=== PATIENT | female | born 1945 | race African-American/Black ===

== ENCOUNTER → 2017-03-20 | Outpatient (CLI) | payer MEDICARE ==
[2014-11-29 16:40] VITALS: BP 138/76
[~2017-03-20] MED LIST: AZEL137S3 NS; DEXL60CA2 PO; FLUT9.9S NS; LOSA100T6 PO; MOME13HF IH; PROAIR HFA8.5 GM IH; VERA240C2 PO
--- NOTE | 2017-03-20 12:09 | KCIC ---
DATE: 03/20/2017 EXAM: MAMMO JESUSITA SCREENING BILATERAL HISTORY: Routine screening COMPARISON: 12/07/2015 The breast parenchyma shows scattered fibroglandular densities. Breast parenchyma level B. FINDINGS: 2-D and 3-D tomosynthesis imaging was performed in CC and MLO projections. There are numerous small smooth nodules in both breasts. No new or enlarging breast densities are seen. Benign type calcifications are present. No suspicious microcalcifications have developed. IMPRESSION: Stable mammograms without evidence of malignancy. BI-RADS CATEGORY: 2 BENIGN FINDING(S) RECOMMENDED FOLLOW-UP: 12M 12 MONTH FOLLOW-UP PQRS compliance statement: Patient information was entered into a reminder system with a target due date for the next mammogram. Mammography is a sensitive method for finding small breast cancers, but it does not detect them all and is not a substitute for careful clinical examination. A negative mammogram does not negate a clinically suspicious finding and should not result in delay in biopsying a clinically suspicious abnormality. "Our facility is accredited by the [employer] Mammography Program."
== END | disposition home or self-care (01) ==
LOC: KCIC MAMMO 09:40
PROVIDERS: ATTEND Family Medicine
DX: Z12.31 Encounter for screening mammogram for malignant neoplasm of breast (principal)
CPT/HCPCS: 77063; G0202; 77067

== ENCOUNTER → 2017-03-25 | Outpatient (CLI) | payer MEDICARE ==
[2014-11-29 16:40] VITALS: BP 138/76
--- NOTE | 2017-03-25 10:43 | KCIC ---
CT MAXILLOFACIAL WO CONTRAST dated 03/25/2017 9:00 AM Indication: Cough, chronic sinusitis patient has been on antibiotics.. Comparison: No comparison is available. Technique: Contiguous axial imaging of the maxillofacial bones obtained with thin cut coronal and sagittal reconstruction. One or more of the following individualized dose reduction techniques were utilized for this examination: 1. Automated exposure control 2. Adjustment of the mA and/or kV according to patient size 3. Use of iterative reconstruction technique Findings: Mild mucosal thickening of the bilateral maxillary sinus. The sphenoid, ethmoid and frontal sinuses are clear. Ostiomeatal units and infundibula are patent. Mastoid air cells and middle ears are clear. No bony destructive process or periostitis. Nasal septum is near midline. Mild bilateral nasal turbinates hypertrophy. Visualized soft tissue structures are unremarkable. Limited imaged portions of the brain are unremarkable. Asymmetric increased density at the left lens as compared to the right side could be related to prior lens surgery and/or cataract formation. IMPRESSION: 1. Minimal maxillary sinus mucosal thickening. Ostiomeatal units and infundibula are patent. Electronically signed by: Steven Reardon MD (03/25/2017 10:40 AM) [facility]-[id number]
== END | disposition home or self-care (01) ==
LOC: KCIC CT 08:48
PROVIDERS: ATTEND Allergy & Immunology
DX: J32.9 Chronic sinusitis, unspecified (principal)
CPT/HCPCS: 70486

== ENCOUNTER → 2017-07-09 | Outpatient (CLI) | payer MEDICARE | END | disposition home or self-care (01) | LOC: KCIC US 07:49 | DX: N83.202 Unspecified ovarian cyst, left side (principal) | CPT/HCPCS: 76830; 76856 ==

== ENCOUNTER → 2017-07-17 | Outpatient (CLI) | payer MEDICARE | END | disposition home or self-care (01) | LOC: KCIC MRI 08:24 | DX: S83.242A Other tear of medial meniscus, current injury, left knee, initial encounter (principal); M17.12 Unilateral primary osteoarthritis, left knee; M22.42 Chondromalacia patellae, left knee; M25.462 Effusion, left knee; X58.XXXA Exposure to other specified factors, initial encounter; Y93.89 Activity, other specified; Y92.89 Other specified places as the place of occurrence of the external cause; Y99.8 Other external cause status | CPT/HCPCS: 73721 ==

== ENCOUNTER 2018-01-07 11:12 | Emergency (ER) | payer MEDICARE ==
[2018-01-07] MEDS: DEXAMETHASONE SOD PHOS 20 MG/5 ML VIAL. IM (11:56)
[2018-01-07] MEDS: KETOROLAC 60 MG/2 ML INJ. IM (11:56)
== END 2018-01-07 12:16 | disposition home or self-care (01) ==
LOC: ER 11:12
DX: M75.52 Bursitis of left shoulder (principal); M62.830 Muscle spasm of back; J45.909 Unspecified asthma, uncomplicated; K21.9 Gastro-esophageal reflux disease without esophagitis; I10 Essential (primary) hypertension; Z90.49 Acquired absence of other specified parts of digestive tract; Z90.710 Acquired absence of both cervix and uterus; Z88.2 Allergy status to sulfonamides
CPT/HCPCS: 96372; 99284; J1100; J1885

== ENCOUNTER → 2018-05-28 | Outpatient (CLI) | payer MEDICARE ==
[2018-01-07 11:17] VITALS: BP 157/81
[~2018-05-28] MED LIST changes: +DICL50TA4 PO; +LOSA100T14 PO; -LOSA100T6 PO; +METH4TAB2 PO; +TRAM50TA PO
--- NOTE | 2018-05-28 12:43 | KCIC ---
MR of the left shoulder Indication: Left shoulder pain, recent injection in physical therapy. No known injury. Pain when raising arm for about 3 weeks.. Comparison: None are available. Technique: Standard multiplanar sequences are obtained. Findings: Artifact: Mild motion degradation but exam is diagnostic. Acromioclavicular joint:Intact. Rotator cuff: * Supraspinatus-infraspinatus tendon: There is a small full-thickness tear of the supraspinatus tendon at the anterior footprint. Measures about 1 cm AP diameter with less than 1 cm retraction. There is tendinosis and partial tearing of the more posterior rotator cuff. * Subscapularis tendon: Intact * Muscle bulk: Mild atrophy * Subacromial subdeltoid bursa: Small effusion. Fluid tracks medially superficial to the supraspinatus muscle. Fluid: No significant glenohumeral effusion. Glenohumeral cartilage: Mild degenerative change Labrum: No evidence of labral detachment. Biceps tendon: Intact Bones: No lesion or acute fracture. Soft tissue: No acute findings.. Impression: 1. Small full-thickness tear of the anterior supraspinatus tendon, about 1 cm diameter. 2. Small subdeltoid bursal effusion or bursitis. Electronically signed by: Steven Donaldson MD (05/28/2018 12:39 PM) [facility]-[id number]
== END | disposition home or self-care (01) ==
LOC: KCIC MRI 10:53
PROVIDERS: ATTEND Physician Assistant Surgical
DX: M19.012 Primary osteoarthritis, left shoulder (principal); M75.102 Unspecified rotator cuff tear or rupture of left shoulder, not specified as traumatic; M25.412 Effusion, left shoulder
CPT/HCPCS: 73221

== ENCOUNTER → 2019-07-02 | Outpatient (CLI) | payer MEDICARE ==
[2018-01-07 11:17] VITALS: BP 157/81
[~2019-07-02] MED LIST changes: +ALBU2.5V8 IH; -PROAIR HFA8.5 GM IH
--- NOTE | 2019-07-02 14:23 | KCIC ---
UPPER EXT JOINT WO CONT LEFT dated 07/02/2019 2:45 PM Indication: Left shoulder pain limited range of motion history of prior surgery and 2018. Comparison: 05/28/2018 Technique: Routine multiplanar multisequence imaging performed. . Findings: There has been interval subacromial decompression and rotator cuff repair. Intermediate T2 signal throughout the repaired cuff with no evidence of recurrent full-thickness tear or cuff retraction. There is articular and bursal surface fraying of the repaired cuff, particularly at the supraspinatus footplate. Partial thickness tearing extends upwards of 50% near the footplate attachment. Subscapularis is intact. There is edema within the marrow of the humeral head near the level of the rotator cuff repair suture anchors. There is also a focal wedge-shaped area of edema within the posterior medial humeral head extending to the articular surface, new from prior study. Mild degenerative change at the glenohumeral joint. There is blunted morphology of the posterior labrum. Thinning and surface irregularity of the articular cartilage throughout with near full-thickness cartilage loss of the central glenoid and medial humeral head. There is mild increased signal within the substance of the long head biceps tendon proximally. Ill-definition of the biceps attachment at the biceps anchor. The extra-articular biceps tendon courses within the bicipital groove. Mild hypertrophic change of the AC joint. Tiny subacromial/subdeltoid bursal effusion. Small glenohumeral joint effusion with small loose bodies or debris at the inferior joint space. Suprascapular and spinoglenoid notches are clear. No significant muscle edema. There is [id number] atrophy of the supraspinatus muscle. IMPRESSION: 1. There is been interval subacromial decompression and rotator cuff repair. Mild to moderate articular and bursal surface partial tearing of the supraspinatus footplate. No recurrent full-thickness tear or cuff retraction. 2. 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 Small focus of subchondral edema at the posterior medial humeral head could be related to overlying full-thickness cartilage loss or bone contusion. Correlate clinically. 3. Blunted morphology of the posterior labrum consistent with degenerative labral tearing. 4. Ill-definition of the long head biceps tendon proximally, focal tendinosis versus partial tear. 5. Small glenohumeral joint effusion. Electronically signed by: Steven Reardon MD (07/02/2019 2:20 PM) [facility]-[id number]
== END | disposition home or self-care (01) ==
LOC: KCIC MRI 12:51
PROVIDERS: ATTEND Orthopaedic Surgery
DX: M75.112 Incomplete rotator cuff tear or rupture of left shoulder, not specified as traumatic (principal); M19.012 Primary osteoarthritis, left shoulder; M25.412 Effusion, left shoulder; M94.212 Chondromalacia, left shoulder; Z98.890 Other specified postprocedural states
CPT/HCPCS: 73221

== ENCOUNTER → 2020-01-04 | Outpatient (CLI) | payer MEDICARE ==
[2018-01-07 11:17] VITALS: BP 157/81
[~2020-01-04] MED LIST changes: +GADOTERATE 7.5 MMOL/15ML VIAL. IVP ONE
--- NOTE | 2020-01-04 12:07 | KCIC ---
EXAM: Lumbar spine MRI without and with contrast. HISTORY: Right-sided sciatica. TECHNIQUE: Multiplanar, multisequence magnetic resonance imaging of the lumbar spine was performed prior to and following the administration of intravenous contrast. COMPARISON: 05/20/2011. FINDINGS: There is mild lumbar scoliosis. There is grade 1 anterolisthesis of L4 and L5, measuring 5 mm. There is degenerative endplate remodeling and disc space narrowing at L4-L5. There is disc desiccation at the lower lumbar levels. The conus terminates at L1. There is postoperative scarring and susceptibility effect within the posterior back soft tissues. There are incidental simple renal cysts. No suspicious enhancing lesion is seen. At L1-L2, there is no stenosis. At L2-L3, there is no stenosis. At L3-L4, there is a disc bulge and endplate remodeling. There is mild bilateral facet arthropathy. There is stenosis. At L4-L5, there is a left foraminal disc protrusion with slight superior extrusion superimposed on a diffuse disc bulge and endplate remodeling. There is also a left there are annular tears. There is moderate bilateral facet arthropathy. There are hemilaminectomy changes. There is grade 1 anterolisthesis. There is moderate bilateral foraminal stenosis with abutment of the exiting left greater than right L4 nerve roots. There is mild central canal stenosis. At L5-S1, there is a shallow posterior central disc protrusion and annular tear superimposed on a disc bulge and endplate remodeling. There is mild bilateral facet arthropathy. There is moderate effacement of the thecal sac due to prominent epidural fat. IMPRESSION: 1. Multilevel degenerative change involving the lumbar spine, described in detail above. This is associated with moderate bilateral foraminal and mild central canal stenosis at L4-L5. This is increased compared to the prior study. There are interval hemilaminectomy changes at this level. 2. Mild lumbar scoliosis and grade 1 anterolisthesis of L4 and L5. This also progressed compared to the prior study. Electronically signed by: Jennie Cade MD (01/04/2020 12:05 PM) [id number]
== END ==
LOC: KCIC MRI 09:46
PROVIDERS: ATTEND Orthopaedic Surgery
DX: M47.816 Spondylosis without myelopathy or radiculopathy, lumbar region (principal); M41.86 Other forms of scoliosis, lumbar region; M48.061 Spinal stenosis, lumbar region without neurogenic claudication
CPT/HCPCS: 72158; 82565; A9575

== ENCOUNTER → 2020-02-28 | Outpatient (CLI) | payer MEDICARE ==
[2018-01-07 11:17] VITALS: BP 157/81
[~2020-02-28] MED LIST changes: +AMIT50TA PO; +CETI10TA16 PO; +CHOL500050 PO; +CIME200T6 PO; +DICL100G54 TP; +DUPI200S SQ; +GABA600T7 PO; -GADOTERATE 7.5 MMOL/15ML VIAL. IVP ONE; +MONT10TA49 PO; +allergy shot
[2020-02-28 09:25] LABS: BASO % 1 % (0-3); EOS # 0.2 x10^3/uL (0.0-0.7); EOS % 5 % (0-3); HEMATOCRIT 38.9 % (36.0-47.0); HEMOGLOBIN 12.8 g/dL (12.0-15.5); LYMPH # 2.1 x10^3/uL (1.0-4.8); LYMPH % 42 % (24-48); MEAN CORPUSCULAR HEMOGLOBIN 27 pg (25-35); MEAN CORPUSCULAR HGB CONC 33 g/dL (31-37); MEAN CORPUSCULAR VOLUME 82 fL (79-100); MONO # 0.3 x10^3/uL (0.0-1.1); MONO % 7 % (0-9); NEUT # 2.3 x10^3/uL (1.8-7.7); NEUT % 46 % (31-73); PLATELET COUNT 349 x10^3/uL (140-400); RED BLOOD COUNT 4.74 x10^6/uL (3.50-5.40); RED CELL DISTRIBUTION WIDTH 14.7 % (11.5-14.5); WHITE BLOOD COUNT 4.9 x10^3/uL (4.0-11.0)
[2020-02-28 09:28] LABS: PROTHROMBIN TIME PATIENT 13.8 SEC (11.7-14.0)
[2020-02-28 09:35] LABS: ALBUMIN 3.2 g/dL (3.4-5.0); C-REACTIVE PROTEIN 16.6 mg/L (0-3.3); CALCIUM 8.8 mg/dL (8.5-10.1); GFR 65.4; POTASSIUM 3.6 mmol/L (3.5-5.1)
--- NOTE | 2020-02-28 12:50 | EKG ---
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
--- NOTE | 2020-02-28 16:40 | RAD ---
AP and Lateral Views of the Chest 02/28/2020 8:54 AM Indication: Reason: prehab class hx hypertension-preop eval / Spl. Instructions: / History: Comparison: None Findings: There is no focal consolidation or infiltrate identified. The cardiomediastinal silhouette is within normal limits. There is no evidence of pneumothorax or pleural effusion. No acute osseous abnormalities are identified. Impression: No evidence of acute cardiopulmonary process. Electronically signed by: Houston Marquez MD (02/28/2020 4:38 PM) [id number]
[2020-02-29 02:08] LABS: HEMOGLOBIN A1C 7.2 % (4.8-5.6)
== END | disposition home or self-care (01) ==
LOC: SURGPAT 13:06
PROVIDERS: ATTEND Orthopaedic Surgery
DX: Z01.818 Encounter for other preprocedural examination (principal); M17.12 Unilateral primary osteoarthritis, left knee; I10 Essential (primary) hypertension
CPT/HCPCS: 36415; 71046; 80048; 82040; 82306; 83036; 85025; 85610; 85730; 86140; 87641; 93005

== ENCOUNTER → 2020-03-17 | Outpatient (CLI) | payer MEDICARE ==
[2018-01-07 11:17] VITALS: BP 157/81
== END | disposition home or self-care (01) ==
LOC: LAB 13:39
PROVIDERS: ATTEND Orthopaedic Surgery
DX: Z20.828 Contact with and (suspected) exposure to other viral communicable diseases (principal)
CPT/HCPCS: U0003-CS

== ENCOUNTER → 2020-04-17 | Outpatient (CLI) | payer MEDICARE ==
[2020-03-23 11:17] VITALS: BP 133/75
--- NOTE | 2020-04-17 16:06 | KCIC ---
MRI ABDOMEN W/O CONTRAST: MRCP Clinical Indication: Reason: PANCREATITIS / Spl. Instructions: / History: Recent ilius and pancreatitis while hospitalized for a TKA. Comparison: CT abdomen and pelvis without contrast, March 23, 2020, [facility]. Technique: Multiplanar multiple pulse sequence imaging of the abdomen was performed, including T2 thin slab images through the biliary tree, without contrast. 3-D volume rendering images constructed to better evaluate the biliary tree anatomy. Findings: Common hepatic duct, common bile duct and visualized portions of the pancreatic duct are patent, without intraluminal filling defect or acute truncation. The extrahepatic duct measures 6 mm, normal. The pancreatic duct is normal caliber. There is a small cyst in segment 2 of the liver. There is mild fatty infiltration of the liver. The spleen, adrenal glands, and abdominal aorta caliber are normal. Cholecystectomy. No hydronephrosis. Small right renal cyst does not require follow-up. Peripancreatic edema is improved from prior study. The pancreas is homogeneous. Atelectasis in the lower lobes noted on the prior study has resolved. IMPRESSION: 1. There is no choledocholithiasis. 2. Mild fatty infiltration of the liver. Electronically signed by: Tyrell Davenport MD (04/17/2020 4:03 PM) [id number]
== END ==
LOC: KCIC MRI 08:24
PROVIDERS: ATTEND Internal Medicine Gastroenterology
DX: K76.0 Fatty (change of) liver, not elsewhere classified (principal); N28.1 Cyst of kidney, acquired; K85.90 Acute pancreatitis without necrosis or infection, unspecified; Z90.49 Acquired absence of other specified parts of digestive tract
CPT/HCPCS: 74181

== ENCOUNTER → 2020-08-24 | Outpatient (CLI) | payer MEDICARE ==
[2020-03-23 11:17] VITALS: BP 133/75
--- NOTE | 2020-08-24 16:19 | KCIC ---
Bilateral digital screening mammograms with 3-D tomosynthesis: Reason for examination: Routine screening. Comparison is made to previous studies dated between 03/20/2017 and 11/09/2014. Bilateral mammograms in CC and oblique projections were obtained with 2-D imaging and 3-D tomosynthes is imaging on a Siemens Inspiration unit and reviewed on the workstation. Interpretation was made pia h the benefit of CAD. The skin and nipples show no abnormalities. No abnormal axillary lymph nodes are seen. The breast par enchyma shows scattered fatty and fibroglandular density. (Breast density: Category B.) There continu e to be small nodular densities bilaterally which have benign appearances. There continue to be scatt ered and clustered benign-appearing calcifications again seen bilaterally which are stable. There are no new dominant masses, suspicious calcifications or architectural distortion. Impression: No evidence of malignancy. Recommend routine screening. BI-RAD Category 2: Benign. "Our facility is accredited by the [employer] Mammography Program." This patient's information has been entered into a reminder system for the patient to be notified wit h the results of her examination and a target date for the next mammogram. Electronically signed by: Eliana Toney MD (08/24/2020 4:16 PM) [id number]
== END ==
LOC: KCIC MAMMO 14:04
PROVIDERS: ATTEND Surgery
DX: Z12.31 Encounter for screening mammogram for malignant neoplasm of breast (principal)
CPT/HCPCS: 77063; 77067

== ENCOUNTER 2021-01-13 12:44 | Emergency (ER) | payer MEDICARE ==
[~2021-01-13] VITALS: Ht 149.9 cm; Wt 72.7 kg
--- NOTE | 2021-01-13 14:06 | RAD ---
Right RIBS with PA chest. Right hip 2 views. HISTORY: Right-sided rib pain after a fall 2 days ago, right hip pain Right RIBS with PA chest AP view was taken of the chest. There is no pneumothorax or pleural effusion. Lungs are clear. Heart is normal in size. AP and oblique views were taken of the right ribs. An acute rib fracture is not identified. There is no osseous abnormality. Right hip 2 views AP view was taken of the pelvis to include the right hip, lateral view was taken of the right hip. Th ere is no pelvic fracture. Pubic rami appear intact. Left hip appears unremarkable on the AP pelvis. Right hip was normal in appearance without a fracture or osseous abnormality on the AP pelvis and lat eral hip. IMPRESSION: 1. No pelvic or right hip fracture noted. 2. No acute chest disease. 3. No right rib fracture noted. Electronically signed by: Dave Silva MD (01/13/2021 2:04 PM) [id number]
--- NOTE | 2021-01-13 14:17 | PHYS DOC ---
Past Medical History Past Medical History: Asthma, GERD, Hypertension Past Surgical History: Cholecystectomy, Hysterectomy Additional Past Surgical Histo: R side shoulder surgery, back surgery, L knee torn ligament surgey Smoking Status: Never Smoker Alcohol Use: None Drug Use: None General Adult EDM: Chief Complaint: MECHANICAL FALL HPI: HPI: Patient is a 75 year old female who presented to ER for evaluation of right- sided rib pain, right hip pain after she fell 3 days ago. Patient states she was walking inside her, tripped and fell down. Patient did hit her head on the ground but no loss of consciousness. Patient denies taking any blood thinner. Patient came in today because the pain in her right hip and her right side of the chest. Patient has been able to walk only with pain. Patient denies any pain on her shoulder or upper extremity. She denies any trouble breathing. Review of Systems: Review of Systems: Constitutional: Denies fever or chills. [] Eyes: Denies change in visual acuity. [] HENT: Denies nasal congestion or sore throat. [] Respiratory: Denies cough or shortness of breath. [] Cardiovascular: Positive for right-sided chest pain, no edema GI: Denies abdominal pain, nausea, vomiting, bloody stools or diarrhea. [] : Denies dysuria. [] Musculoskeletal: Denies back pain, positive for right hip pain Integument: Denies rash. [] Neurologic: Denies headache, focal weakness or sensory changes. [] Endocrine: Denies polyuria or polydipsia. [] Lymphatic: Denies swollen glands. [] Psychiatric: Denies depression or anxiety. [] Heart Score: C/O Chest Pain: N/A Risk Factors: Risk Factors: DM, Current or recent (<one month) smoker, HTN, HLP, family history of CAD, obesity. Risk Scores: Score 0 - 3: 2.5% MACE over next 6 weeks - Discharge Home Score 4 - 6: 20.3% MACE over next 6 weeks - Admit for Clinical Observation Score 7 - 10: 72.7% MACE over next 6 weeks - Early Invasive Strategies Allergies: Allergies: Allergies Coded Allergies Type Severity Reaction Last Updated Verified Sulfa (Sulfonamide Antibiotics) Allergy Intermediate 03/21/20 Yes Physical Exam: PE: Constitutional: Well developed, well nourished, no acute distress, non-toxic appearance. [] HENT: Normocephalic, atraumatic, bilateral external ears normal, oropharynx moist, no oral exudates, nose normal. [] Eyes: PERRLA, EOMI, conjunctiva normal, no discharge. [] Neck: Normal range of motion, no tenderness, supple, no stridor. [] Cardiovascular:Heart rate regular rhythm, no murmur [] Lungs & Thorax: Bilateral breath sounds clear to auscultation, right-sided chest tender to palpation, no contusion noted. Abdomen: Bowel sounds normal, soft, no tenderness, no masses, no pulsatile masses. [] Skin: Warm, dry, no erythema, no rash. [] Back: No tenderness, no CVA tenderness. [] Extremities: No tenderness, no cyanosis, no clubbing, ROM intact, no edema. Right hip is tender to palpation, no contusion noted, no deformity noted. Neurologic: Alert and oriented X 3, normal motor function, normal sensory function, no focal deficits noted. [] Psychologic: Affect normal, judgement normal, mood normal. [] Current Patient Data: Vital Signs: Vital Signs Date Time Temp Pulse Resp B/P (MAP) Pulse Ox O2 Delivery O2 Flow Rate FiO2 01/13/21 13:10 98.6 95 13 175/88 (97) 95 Room Air 98.6 EKG: EKG: [] Radiology/Procedures: Radiology/Procedures: [][facility] [address] [place] [address] IMAGING REPORT Signed PATIENT: JUDGE Sandro SANCHEZ ACCOUNT: [id number] : 1945 LOCATION: ER AGE: 75 SEX: F EXAM STATUS: PRE ER ORD. PHYSICIAN: GAETANO MILLER DO REASON: fell 2 days ago, right hip pain PROCEDURE: HIP RIGHT 1 VIEW WITH PELVIS Right RIBS with PA chest. Right hip 2 views. HISTORY: Right-sided rib pain after a fall 2 days ago, right hip pain Right RIBS with PA chest AP view was taken of the chest. There is no pneumothorax or pleural effusion. Lungs are clear. Heart is normal in size. AP and oblique views were taken of the right ribs. An acute rib fracture is not identified. There is no osseous abnormality. Right hip 2 views AP view was taken of the pelvis to include the right hip, lateral view was taken of the right hip. There is no pelvic fracture. Pubic rami appear intact. Left hip appears unremarkable on the AP pelvis. Right hip was normal in appearance without a fracture or osseous abnormality on the AP pelvis and lateral hip. IMPRESSION: 1. No pelvic or right hip fracture noted. 2. No acute chest disease. 3. No right rib fracture noted. Electronically signed by: Dave Silva MD (01/13/2021 2:04 PM) [id number] DICTATED and SIGNED BY: DAVE SILVA MD DATE: 01/13/21 [id number] 0 Course & Med Decision Making: Course & Med Decision Making Pertinent Labs and Imaging studies reviewed. (See chart for details) Patient presented to ER due to pain on her right hip and her right chest after a fall 3 days ago. X-ray did not show any acute problem, patient was able to walk without a problem. Dragon Disclaimer: Dragon Disclaimer: This electronic medical record was generated, in whole or in part, using a voice recognition dictation system. Departure Departure Impression: Primary Impression: Contusion of chest wall Additional Impression: Contusion of right hip Disposition: 01 HOME / SELF CARE / HOMELESS Condition: STABLE Referrals: CYN SCHMITT MD (PCP) Follow up with your doctor as needed Patient Instructions: Chest Wall Pain, Hip Pointer (Iliac Crest Contusion)- [facility] Additional Instructions: Thank you for visiting our Emergency Department. We appreciate you trusting us with your care. If any additional problems come up don't hesitate to return to visit us. Please follow up with your primary care provider so they can plan additional care if needed and know about the problem that you had. If symptoms worsen come back to the Emergency Department. Any concerning symptoms that start such as chest pain, shortness of air, weakness or numbness on one side of the body, running high fevers or any other concerning symptoms return to the ER. GAETANO MILLER DO Jan 13, 2021 14:17
[2021-01-13 14:39] VITALS: BP 149/82
== END 2021-01-13 14:49 | disposition home or self-care (01) ==
LOC: ER 12:44
DX: S20.211A Contusion of right front wall of thorax, initial encounter (principal); S70.01XA Contusion of right hip, initial encounter; K21.9 Gastro-esophageal reflux disease without esophagitis; J45.909 Unspecified asthma, uncomplicated; I10 Essential (primary) hypertension; Z88.2 Allergy status to sulfonamides; W01.0XXA Fall on same level from slipping, tripping and stumbling without subsequent striking against object, initial encounter; Y93.01 Activity, walking, marching and hiking; Y92.89 Other specified places as the place of occurrence of the external cause; Y99.8 Other external cause status
CPT/HCPCS: 71101; 73501; 99284

== ENCOUNTER 2021-08-03 11:45 | Day surgery (SDC) | payer MEDICARE ==
[~2021-08-03] VITALS: Ht 151.1 cm; Wt 72.7 kg
[~2021-08-03 11:45] MED LIST changes: +CLINDAMYCIN 900MG PREMIX 50 ML IV PRN; +HYDROmorphone 2 MG/ML INJ. IVP PRN; +IV RINGERS,LACTATED 1000ML 1,000 ML IV SCH; +MORPHINE SULFATE 2 MG/ML INJ. IVP PRN; +PROCHLORPERAZINE 10 MG/2 ML VIAL. IVP PRN; +fentaNYL PF VIAL 100 MCG/2 ML VIAL IVP PRN
[2021-08-03] MEDS ORDERED: INSULIN LISPRO 100 UNIT/ML 3ML VIAL for OP,RR ONLY. SQ PRN (12:30)
[2021-08-03] MEDS ORDERED: TRAM50TA PO (14:27)
--- NOTE | 2021-08-03 14:29 | DISCH ---
DISCHARGE INSTRUCTIONS Condition on Discharge Condition on Discharge: Stable Activity After Discharge Activity Instructions for Disc: Resume previous activity, Avoid exertion Driving Instructions after Dis: Do not drive today Wound Incision Care Wound/Incision Care: Ice to area for comfort, Keep wound elevated, Change dressing Other wound/incision instructi: May change dressing to a large Band-Aid postoperative day #3 Follow-Up Follow up with: Dr. Carbajal in 10 to 14 days KAYLEIGH CARBAJAL Jr. DO Aug 03, 2021 14:29
[2021-08-03] MEDS ORDERED: BUPIVACAINE MPF 0.5% 30 ML VIAL. ONE (14:33)
[2021-08-03] MEDS ORDERED: methylPREDNISolone ACETATE 40 MG/ML VIAL. ONE (14:33)
[2021-08-03] MEDS ORDERED: PROPOFOL 10 MG/ML (20ML) VIAL. IV ONE (14:35)
[2021-08-03] MEDS ORDERED: fentaNYL PF VIAL 100 MCG/2 ML VIAL ONE (14:51)
--- NOTE | 2021-08-03 15:08 | PDOC4 ---
OPERATIVE NOTE Date: Date: Aug 03, 2021 Pre-Op Diagnosis: Carpal tunnel syndrome right CMC arthrosis right Post-Op Diagnosis: Same Procedure Performed: Carpal tunnel release right injection CMC joint right Surgeon: Feliberto Anesthesia Type: General Blood Loss: 5 cc Specimans Obtained: None Findings: See dictation Complications: None KAYLEIGH CARBAJAL Jr. DO Aug 03, 2021 15:08
[2021-08-03] MEDS ORDERED: traMADol 50 MG TABLET PO ONE (15:15)
--- NOTE | 2021-08-03 15:37 | OP ---
DATE OF SURGERY: 08/03/2021 PREOPERATIVE DIAGNOSES: Carpal tunnel syndrome, right; carpometacarpal arthrosis, right. POSTOPERATIVE DIAGNOSES: Carpal tunnel syndrome, right; carpometacarpal arthrosis, right. PROCEDURE: Right carpal tunnel release followed by injection CMC joint, right thumb. SURGEON: Janak Dao Jr, DO. SEARCH MARKETING ANALYST: Severino Goldman. ANESTHESIA: General. COMPLICATIONS: None. ESTIMATED BLOOD LOSS: 5 mL. DESCRIPTION OF PROCEDURE: The patient was taken to the operative suite, given a general anesthetic. Right upper extremity was then prepped and draped in a sterile fashion. Incision was made through skin and subcutaneous tissues directly over the area of the transverse carpal ligament in line with the radial border of the fourth digit. This was carefully taken down to the transverse carpal ligament, which was released in line. This was fully released and the underlying nerve was noted to be completely released and also intact and looked very good. The wound was then thoroughly irrigated and after Bovie was used to coagulate superficial bleeding, this was closed in interrupted fashion using 3-0 nylon. Local was placed within the site. Injection was undertaken to the CMC joint with steroid mixture with Marcaine. This was done along this area and sterile dressing was then applied to the upper extremity. The patient was then taken from the operative bed to the postoperative bed, taken to the PACU in stable condition. HAIR DR: Mehnaz TID: [id number]
[2021-08-03 16:30] VITALS: BP 131/72
== END 2021-08-03 16:45 | disposition home or self-care (01) ==
LOC: SURG 11:45
PROVIDERS: ATTEND Orthopaedic Surgery
DX: G56.01 Carpal tunnel syndrome, right upper limb (principal); I10 Essential (primary) hypertension; J45.909 Unspecified asthma, uncomplicated; K21.9 Gastro-esophageal reflux disease without esophagitis; M19.90 Unspecified osteoarthritis, unspecified site; F32.9 Major depressive disorder, single episode, unspecified; E11.9 Type 2 diabetes mellitus without complications; Z90.49 Acquired absence of other specified parts of digestive tract; Z90.710 Acquired absence of both cervix and uterus; Z98.890 Other specified postprocedural states; Z79.899 Other long term (current) drug therapy; Z88.2 Allergy status to sulfonamides
CPT/HCPCS: 20605; 64721; 82962; A4930; A6223; J1030; J2704; J3010; J3490; A4657; A6452